=== PATIENT | male | born 1970 | race African-American/Black ===

== ENCOUNTER 2022-09-11 04:01 | Day surgery (SDC) | payer OTHER ==
[2022-09-09 12:06] VITALS: BMI 37.9
[~2022-09-11 04:01] MED LIST: ceFAZolin SODIUM 1 GM VIAL IVPB ONE
[2022-09-11] MEDS ORDERED: LIDOCAINE HCL/PF 2% SDV 5ML VIAL ONE (09:01)
[2022-09-11] MEDS ORDERED: PROPOFOL 40 ML ONE (09:02)
[2022-09-11] MEDS ORDERED: ONDANSETRON 4 MG/2 ML VIAL IVPUSH PRN (10:00)
[2022-09-11] MEDS ORDERED: LACTATED RINGERS SOLUTION 1,000 ML IV SCH (10:00)
[2022-09-11] MEDS ORDERED: MIDAZOLAM HCL 2 MG/2 ML SINGLE DOSE VIAL ONE (10:00)
[2022-09-11] MEDS ORDERED: ROPIVACAINE HCL 0.5% 30ML VIAL ONE (10:01)
[2022-09-11] MEDS ORDERED: ceFAZolin SODIUM 1 GM VIAL ONE ×2 (10:45→10:50)
[2022-09-11] MEDS ORDERED: ceFAZolin SODIUM 1 GM VIAL IVPB ONE (10:50)
[2022-09-11] MEDS ORDERED: ONDANSETRON 4 MG/2 ML VIAL ONE (10:52)
[2022-09-11] MEDS ORDERED: DEXAMETHASONE SOD PHOSPHATE 4 MG/1 ML VIAL ONE (10:52)
[2022-09-11 14:18] VITALS: PULSE 100; RESP 16
[2022-09-11 14:57] VITALS: BP 163/79; TEMP 98.4
== END 2022-09-11 15:22 | disposition home or self-care (01) ==
LOC: JASU-SURG 04:01
PROVIDERS: ATTEND Orthopaedic Surgery
PROC: 0RNK4ZZ Release Left Shoulder Joint, Percutaneous Endoscopic Approach (ICD-10-PCS; principal; 2022-09-11 11:00)
PROC: 0PBB4ZZ Excision of Left Clavicle, Percutaneous Endoscopic Approach (ICD-10-PCS; 2022-09-11 11:00)
DX: M19.012 Primary osteoarthritis, left shoulder (principal); S43.492A Other sprain of left shoulder joint, initial encounter; X58.XXXA Exposure to other specified factors, initial encounter; Y93.9 Activity, unspecified; Y92.9 Unspecified place or not applicable; Y99.9 Unspecified external cause status
CPT/HCPCS: 82962; 94760; C1713